=== PATIENT | female | born 2000 | race Two or more races ===

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

== ENCOUNTER 2020-01-24 11:50 | Emergency (ER) | payer OTHER, MEDICAID ==
[~2020-01-24] VITALS: Ht 160 cm; Wt 81.6 kg
[2020-01-24 12:03] VITALS: BP 125/73
[2020-01-24] MEDS ORDERED: IBUPROFEN 800 MG TAB PO ONE (13:30)
== END 2020-01-24 13:34 | disposition home or self-care (01) ==
LOC: ER 11:50
DX: S16.1XXA Strain of muscle, fascia and tendon at neck level, initial encounter (principal); V43.52XA Car driver injured in collision with other type car in traffic accident, initial encounter; Y93.89 Activity, other specified; Y92.488 Other paved roadways as the place of occurrence of the external cause; Y99.8 Other external cause status
CPT/HCPCS: 72040

== ENCOUNTER 2020-04-22 11:22 | Emergency (ER) | payer MEDICAID ==
[~2020-04-22] VITALS: Ht 160 cm; Wt 85.7 kg
[2020-04-22 11:29] VITALS: BP 121/72
== END 2020-04-22 12:35 | disposition home or self-care (01) ==
LOC: ER 11:22
DX: U07.1 COVID-19 (principal)
CPT/HCPCS: 71045; 87635

== ENCOUNTER 2021-06-08 10:04 | Emergency (ER) | payer MEDICAID ==
[~2021-06-08] VITALS: Ht 160 cm; Wt 81.6 kg
[2021-06-08 10:06] VITALS: BP 129/53
[2021-06-08] MEDS ORDERED: IBUPROFEN 800 MG TAB PO ONE (10:47)
== END 2021-06-08 10:57 | disposition home or self-care (01) ==
LOC: ER 10:04
DX: S63.616A Unspecified sprain of right little finger, initial encounter (principal); J45.909 Unspecified asthma, uncomplicated; W23.0XXA Caught, crushed, jammed, or pinched between moving objects, initial encounter; Y93.89 Activity, other specified; Y92.89 Other specified places as the place of occurrence of the external cause; Y99.8 Other external cause status
CPT/HCPCS: 29130; 73130